=== PATIENT | female | born 1955 | race Caucasian/White ===

== ENCOUNTER 2016-06-04 14:00 | Inpatient (IN) | payer OTHER ==
[~2016-06-04] VITALS: Ht 160 cm; Wt 76.1 kg
[~2016-06-04 14:00] MED LIST: ATEN50TA PO; CIPR-9 PO; CYMB60CA PO; DETR4CAP PO; FURO40TA PO; HALO1TAB PO; LEVO125T4 PO; LURA80 PO; POTA10PO PO; REME30TA PO; ZOFR4TAB PO
[2016-06-04 14:05] VITALS: BP 160/72; PULSE 60; RESP 14; TEMP 98.6; O2SAT 96
[2016-06-04] MEDS ORDERED: SODIUM CHLOR 0.9% 1000 ML INJ 1,000 ML IV SCH (14:41)
[2016-06-04] MEDS ORDERED: SODIUM CHLORIDE 0.9% FLUSH 5 ML FLUSH IVF PRN (14:45)
--- NOTE | 2016-06-04 14:51 | PD ---
HPI Chief Complaint: Medical Clearance Time Seen by Provider: 14:31 Travel History International Travel<30 days: No Contact w/Intl Traveler<30days: No Traveled to known affect area: No History of Present Illness HPI The patient is a 60-year-old female who presents to the emergency department for medical evaluation of poor oral intake. According to the paperwork sent from the assisted living facility the patient is currently on hospice for a history of multiple sclerosis and schizophrenia. The patient apparently has had poor by mouth intake despite a specific diet for thickened liquids. The patient is nonverbal and is unable to communicate. She will follow simple commands but is unable to shake her head yes or no to questioning despite multiple attempts. Therefore, no further information is obtainable from the patient. The patient's son will be contacted in regards to definitive management. PFSH Past Medical History Arthritis: Yes Blood Disorders: Yes Bipolar Disorder: Yes Anxiety: Yes Depression: Yes Cancer: No Cardiovascular Problems: Yes Diabetes: No Diminished Hearing: No Endocrine: Yes Gastrointestinal Disorders: Yes (SEE MEDICAL RECORD) GERD: Yes Genitourinary: Yes Headaches: Yes Hypertension: Yes Immune Disorder: No Kidney Stones: Yes Musculoskeletal: Yes Neurologic: Yes (SEE MEDICAL RECORD) Psychiatric: Yes Reproductive: No Respiratory: No Integumentary: Yes (RED RASH, ABDOMINAL FOLDS, PERINEAL AREA, UNDER BREAST.) Immunizations Current: Yes Migraines: Yes Schizophrenia: Yes Thyroid Disease: Yes Menopausal: No : 2 Para: 1 : 1 Past Surgical History Abdominal Surgery: Yes Section: Yes (X1) Gynecologic Surgery: Yes Hysterectomy: Yes Oral Surgery: Yes Tonsillectomy: Yes Other Surgery: Yes (SEE MEDICAL RECORD) Social History Alcohol Use: No Tobacco Use: No Substance Use: No Allergies-Medications (Allergen,Severity, Reaction): Coded Allergies: Penicillin (Verified Allergy, Severe, 05/19/16) Rocephin (Verified Allergy, Severe, 05/19/16) Reported Meds & Prescriptions Reported Meds & Active Scripts Active Zofran (Ondansetron HCl) 4 Mg Tab 4 Mg PO Q6HR PRN Cipro (Ciprofloxacin HCl) 500 Mg Tab 500 Mg PO BID 10 Days Remeron (Mirtazapine) 30 Mg Tab 30 Mg PO HS Latuda (Lurasidone) 80 Mg Tab 80 Mg PO DAILY AT 5PM Haloperidol 1 Mg Tab 1 Mg PO BID Cymbalta DR (Duloxetine HCl) 60 Mg Capdr 60 Mg PO DAILY Reported Detrol LA (Tolterodine Tartrate) 4 Mg Cap 4 Mg PO DAILY Levothyroxine (Levothyroxine Sodium) 125 Mcg Tab 125 Mcg PO DAILY Potassium Chloride Powder (Potassium Chloride) 20 Meq Powderpack 20 Meq PO DAILY Furosemide 40 Mg Tab 40 Mg PO DAILY Atenolol 50 Mg Tab 50 Mg PO DAILY Review of Systems ROS Limitations: Clinical Condition, Other: (nonverbal) Gastrointestinal: Positive: Loss of Appetite (decreased oral intake according to the area left paperwork) Neurologic: Positive: Other (she of MS) Psychiatric: Positive: Disorder of Thought (history of schizophrenia) Physical Exam Narrative GENERAL: Awake, alert, 60-year-old female who is nonverbal but will make eye contact. SKIN: Warm and dry. HEAD: Atraumatic. Normocephalic. EYES: Pupils equal and round. 4 mm bilateral and reactive. ENT: No nasal bleeding or discharge. Slightly dry mucous membranes. NECK: Trachea midline. No JVD. CARDIOVASCULAR: Regular rate and rhythm. No murmur appreciated. Heart rate in the 70s. RESPIRATORY: No accessory muscle use. Clear to auscultation. Breath sounds equal bilaterally. GASTROINTESTINAL: Abdomen soft, non-tender, nondistended. No obvious rebound tenderness. MUSCULOSKELETAL: No obvious deformities. No clubbing. No cyanosis. No edema. Moves her upper extremities, would not move lower extremities and examination. NEUROLOGICAL: Awake and alert. Nonverbal, will make eye contact, will squeeze her hands to verbal commands, but will not move her lower extremities.. PSYCHIATRIC: Unable to assess. Data Data Last Documented VS Vital Signs Date Time Temp Pulse Resp B/P Pulse Ox O2 Delivery O2 Flow Rate FiO2 06/04/16 14:05 98.6 60 14 160/72 96 Orders Complete Blood Count With Diff (06/04/16 14:41) Comprehensive Metabolic Panel (06/04/16 14:41) Lipase (06/04/16 14:41) Lactic Acid (06/04/16 14:41) Urinalysis - C+S If Indicated (06/04/16 14:41) Iv Access Insert/Monitor (06/04/16 14:41) Ecg Monitoring (06/04/16 14:41) Oximetry (06/04/16 14:41) Sodium Chlor 0.9% 1000 Ml Inj (Ns 1000 M (06/04/16 14:41) Sodium Chloride 0.9% Flush (Ns Flush) (06/04/16 14:45) Urine Culture (06/04/16 15:38) Ciprofloxacin 400 Mg Premix (Cipro 400 M (06/04/16 16:30) Ct Abd/Pel W/O Iv Contrast (06/04/16 ) Admit Order (Ed Use Only) (06/04/16 17:25) Labs Laboratory Tests Test 06/04/16 06/04/16 15:33 15:38 White Blood Count 5.1 TH/MM3 Red Blood Count 4.22 MIL/MM3 Hemoglobin 13.8 GM/DL Hematocrit 39.3 % Mean Corpuscular Volume 93.1 FL Mean Corpuscular Hemoglobin 32.6 PG Mean Corpuscular Hemoglobin 35.0 % Concent Red Cell Distribution Width 12.7 % Platelet Count 162 TH/MM3 Mean Platelet Volume 8.6 FL Neutrophils (%) (Auto) 64.8 % Lymphocytes (%) (Auto) 25.4 % Monocytes (%) (Auto) 7.7 % Eosinophils (%) (Auto) 1.6 % Basophils (%) (Auto) 0.5 % Neutrophils # (Auto) 3.3 TH/MM3 Lymphocytes # (Auto) 1.3 TH/MM3 Monocytes # (Auto) 0.4 TH/MM3 Eosinophils # (Auto) 0.1 TH/MM3 Basophils # (Auto) 0.0 TH/MM3 CBC Comment DIFF FINAL Differential Comment Sodium Level 144 MEQ/L Potassium Level 4.6 MEQ/L Chloride Level 106 MEQ/L Carbon Dioxide Level 35.3 MEQ/L Anion Gap 3 MEQ/L Blood Urea Nitrogen 22 MG/DL Creatinine 1.05 MG/DL Estimat Glomerular Filtration 53 ML/MIN Rate Random Glucose 93 MG/DL Lactic Acid Level 0.9 mmol/L Calcium Level 9.9 MG/DL Total Bilirubin 0.7 MG/DL Aspartate Amino Transf 53 U/L (AST/SGOT) Alanine Aminotransferase 47 U/L (ALT/SGPT) Alkaline Phosphatase 74 U/L Total Protein 7.2 GM/DL Albumin 3.2 GM/DL Lipase 1401 U/L Urine Color YELLOW Urine Turbidity HAZY Urine pH 6.5 Urine Specific [place] 1.015 Urine Protein TRACE mg/dL Urine Glucose (UA) NEG mg/dL Urine Ketones NEG mg/dL Urine Occult Blood NEG Urine Nitrite NEG Urine Bilirubin NEG Urine Urobilinogen LESS THAN 2.0 MG/DL Urine Leukocyte Esterase MOD Urine WBC 14 /hpf Urine Bacteria OCC /hpf Urine Hyaline Casts 1 /lpf Microscopic Urinalysis Comment CULTURE INDICATED [facility] Medical Decision Making Medical Screen Exam Complete: Yes Emergency Medical Condition: Yes Medical Record Reviewed: Yes Interpretation(s) Laboratory Tests Test 06/04/16 06/04/16 15:33 15:38 White Blood Count 5.1 TH/MM3 Red Blood Count 4.22 MIL/MM3 Hemoglobin 13.8 GM/DL Hematocrit 39.3 % Mean Corpuscular Volume 93.1 FL Mean Corpuscular Hemoglobin 32.6 PG Mean Corpuscular Hemoglobin 35.0 % Concent Red Cell Distribution Width 12.7 % Platelet Count 162 TH/MM3 Mean Platelet Volume 8.6 FL Neutrophils (%) (Auto) 64.8 % Lymphocytes (%) (Auto) 25.4 % Monocytes (%) (Auto) 7.7 % Eosinophils (%) (Auto) 1.6 % Basophils (%) (Auto) 0.5 % Neutrophils # (Auto) 3.3 TH/MM3 Lymphocytes # (Auto) 1.3 TH/MM3 Monocytes # (Auto) 0.4 TH/MM3 Eosinophils # (Auto) 0.1 TH/MM3 Basophils # (Auto) 0.0 TH/MM3 CBC Comment DIFF FINAL Differential Comment Lactic Acid Level 0.9 mmol/L Total Bilirubin 0.7 MG/DL Alkaline Phosphatase 74 U/L Total Protein 7.2 GM/DL Urine Color YELLOW Urine Turbidity HAZY Urine pH 6.5 Urine Specific [place] 1.015 Urine Protein TRACE mg/dL Urine Glucose (UA) NEG mg/dL Urine Ketones NEG mg/dL Urine Occult Blood NEG Urine Nitrite NEG Urine Bilirubin NEG Urine Urobilinogen LESS THAN 2.0 MG/DL Urine Leukocyte Esterase MOD Urine WBC 14 /hpf Urine Bacteria OCC /hpf Urine Hyaline Casts 1 /lpf Microscopic Urinalysis Comment CULTURE INDICATED Last Impressions Abdomen/Pelvis CT 06/04/16 0000 Signed Impressions: Service Date/Time: Saturday, June 04, 2016 18:14 - CONCLUSION: 1. No acute findings within the abdomen and pelvis. Specifically no CT findings for acute pancreatitis. 2. Multiple calcified gallstones and bilateral nonobstructing renal calculi. 3. Mild constipation. 4. No significant change from April. Dago Farfan MD Differential Diagnosis Differential diagnosis includes end-of-life care, multiple sclerosis, schizoaffective disorder, dehydration, hypoalbuminemia, renal insufficiency, inability to care for self. Narrative Course I had a discussion with the hospitalist fisher gill net, who states that the patient' s physician, Dr. Gauthier and a hospice staff had a discussion with the patient's son, who is the only child. The patient's son does not have power of state attorney, however, as the only person they have to make a legal decision. The patient apparently had multiple episodes of increased work of breathing and was near last night, quarter hospice staff, when the son decided to change his mind and wanted everything done for the patient. They note poor oral intake and the son requested the patient be sent to the emergency department for gastrostomy tube placement and continuing medical care. Hospice states the patient was a DNR, however, is unsure if the son will keep the patient has a DNR. The patient is nonverbal and unable to communicate her current wishes. Therefore, IV was established labs are drawn and sent, and chest x-ray was obtained. The patient was administered IV fluids. Patient's UA revealed 14 WBCs, therefore, was administered Cipro as she is allergic to Rocephin. The on- call medical physician/hospitalist were paged for admission. The patient's lipase is elevated, therefore, CT the abdomen and pelvis was ordered to evaluate for choledocholithiasis and or pancreatitis. The patient will be admitted to medical physician. CT the abdomen and pelvis was unremarkable. Patient is medically clear for floor. Physician Communication Physician Communication I discussed the patient with Dr. Raymond who agrees with admission. Diagnosis Primary Impression: Multiple sclerosis Additional Impressions: Dehydration, mild Pancreatitis Qualified Code: K85.90 - Acute pancreatitis, unspecified complication status, unspecified pancreatitis type Admitting Information Admitting Physician Requests: Admit Condition: Stable Bhavesh Ortiz MD Jun 04, 2016 14:51
[2016-06-04 15:57] LABS: AUTOMATED NEUTROPHIL # 3.3 TH/MM3 (1.8-7.7); BASOPHIL % 0.5 % (0.0-2.0); EOSINOPHIL # 0.1 TH/MM3 (0-0.4); EOSINOPHIL % 1.6 % (0.0-4.0); HEMATOCRIT 39.3 % (35.0-46.0); HEMO FLAGS DIFF FINAL; LYMPH % 25.4 % (9.0-44.0); LYMPHOCYTE # 1.3 TH/MM3 (1.0-4.8); MEAN CELL VOLUME 93.1 FL (80.0-100.0); MEAN CORPUSCULAR HEMOGLOBIN 32.6 PG (27.0-34.0); MONO % 7.7 % (0.0-8.0); NEUT % 64.8 % (16.0-70.0); PLATELET COUNT 162 TH/MM3 (150-450); RED BLOOD COUNT 4.22 MIL/MM3 (4.00-5.30); RED CELL DISTRIBUTION WIDTH 12.7 % (11.6-17.2); WHITE BLOOD COUNT 5.1 TH/MM3 (4.0-11.0)
[2016-06-04 16:10] LABS: BACTERIA, URINE OCC /hpf; BLOOD, URINE NEG (NEG); COMMENT (UR) CULTURE INDICATED; CULTURE IF INDICATED CULTURE INDICATED; GLUCOSE,URINE NEG (NEG); HYALINE CAST, URINE 1 /lpf (RARE); KETONE, URINE NEG (NEG); NITRITE,URINE NEG (NEG); PH, URINE 6.5 (5.0-8.5); URINE COLOR YELLOW (YELLW/STRAW)
[2016-06-04 16:21] LABS: ALKALINE PHOSPHATASE 74 U/L (45-117); TOTAL BILIRUBIN ADULT 0.7 MG/DL (0.2-1.0)
[2016-06-04] MEDS ORDERED: CIPROFLOXACIN 400 MG PREMIX 200 ML IV ONE (16:30)
[2016-06-04 16:44] LABS: ALT (GPT) 47 U/L (10-53); ANION GAP 3 MEQ/L (5-15); AST (GOT) 53 U/L (15-37); BICARBONATE 35.3 MEQ/L (21.0-32.0); BLOOD UREA NITROGEN 22 MG/DL (7-18); CHLORIDE 106 MEQ/L (98-107); GLOMERULAR FILTRATION RATE 53 ML/MIN (>89); SODIUM (NA) 144 MEQ/L (136-145)
[2016-06-04 17:06] LABS: POTASSIUM 4.6 MEQ/L (3.5-5.1)
--- NOTE | 2016-06-04 18:34 | RADRPT ---
EXAM DATE/TIME: 06/04/2016 18:14 [facility] COMPARISON: CT ABDOMEN & PELVIS W CONTRAST, May 19, 2016, 19:35. INDICATIONS : Diffuse abdominal pain; evaluate for pancreatitis. ORAL CONTRAST: No oral contrast ingested. RADIATION DOSE: 5.23 CTDIvol (mGy) MEDICAL HISTORY : Hypertension. Gastroesophageal reflux disease. Renal calculi. SURGICAL HISTORY : Hysterectomy. section. ENCOUNTER: Initial ACUITY: 1 day PAIN SCALE: Non-responsive LOCATION: Abdomen/pelvis TECHNIQUE: Volumetric scanning of the abdomen and pelvis was performed. Using automated exposure control and ad justment of the mA and/or kV according to patient size, radiation dose was kept as low as reasonably achievable to obtain optimal diagnostic quality images. FINDINGS: Lung bases are clear. No significant abnormality in the liver, spleen, adrenals or pancreas. Multiple calcified gallstones in the gallbladder. Multiple bilateral renal calculi ranging in size from 1-5 m m in the upper and lower poles. No ureteral or bladder calculi identified. Vascular calcifications no arthur in the pelvis. No acute bony and amount is. No bowel obstruction, free air or free fluid. Mild constipation. CONCLUSION: 1. No acute findings within the abdomen and pelvis. Specifically no CT findings for acute pancreatiti s. 2. Multiple calcified gallstones and bilateral nonobstructing renal calculi. 3. Mild constipation. 4. No significant change from May 19, 2016. Dago Farfan MD on June 04, 2016 at 18:22 Board Certified Radiologist. This report was verified electronically.
--- NOTE | 2016-06-04 18:54 | HHI.HP ---
[facility] Unknown Admission Diagnosis pancreatitis, MS, dehydration Diagnoses: (1) Pancreatitis Diagnosis: Principal (2) UTI (urinary tract infection) Diagnosis: Principal (3) Schizophrenia Diagnosis: Principal (4) Failure to thrive in adult Diagnosis: Principal (5) DNR (do not resuscitate) Diagnosis: Principal Travel History International Travel<30 Days: No Contact w/Intl Traveler <30 Da: No Traveled to Known Affected Are: No History of Present Illness This is a 60-year-old DNR female with a PMH of Anxiety, Depression, Schizophrenia, HTN and MS who was sent to the ER from [facility] secondary to decreased PO intake. Pt unable to give history as she is nonverbal at baseline. Per report, pt currently under Hospice, however Son wanting full treatment. On arrival, BP 160/72, HR 60, O2 sat 96% on RA, Afebrile. CBC normal. Creatinine 1.05, previously 1.33 on 05/19/16. UA positive for UTI. Lipase 1401. CT Abd/Pelvis w/ no acute findings. S/p Cipro in ER for UTI. Review of Systems Other ROS: Unable to obtain secondary to nonverbal state. Past Family Social History Past Medical History PMH: Anxiety, Depression, Schizophrenia, HTN and MS Past Surgical History PAST SURGICAL HISTORY: , Hysterectomy, Tonsillectomy Allergies: Coded Allergies: Penicillin (Verified Allergy, Severe, 05/19/16) Rocephin (Verified Allergy, Severe, 05/19/16) Family History PAST FAMILY HISTORY: Reviewed. No h/o DM or CAD Social History PAST SOCIAL HISTORY: Negative for alcohol, tobacco or drugs. Physical Exam Vital Signs Vital Signs Date Time Temp Pulse Resp B/P Pulse Ox O2 Delivery O2 Flow Rate FiO2 06/04/16 14:05 98.6 60 14 160/72 96 Physical Exam PE: GENERAL: Thin, frail middle-aged white female in no acute distress, appears older than stated age. HEENT: PERRLA, EOMI. No scleral icterus or conjunctival pallor. No lid lag or facial droop. CARDIOVASCULAR: Regular rate and rhythm. No obvious murmurs to auscultation. No chest tenderness to palpation. RESPIRATORY: No obvious rhonchi or wheezing. Clear to auscultation. Breath sounds equal bilaterally. GASTROINTESTINAL: Abdomen soft, non-tender, nondistended. BS normal. MUSCULOSKELETAL: Extremities without clubbing, cyanosis, or edema. No obvious deformities. NEUROLOGICAL: Sleeping, opens eyes to name, follows few simple commands. No focal neurologic deficits. Moving both upper and lower extremities spontaneously. Laboratory Laboratory Tests Test 06/04/16 06/04/16 15:33 15:38 White Blood Count 5.1 Red Blood Count 4.22 Hemoglobin 13.8 Hematocrit 39.3 Mean Corpuscular Volume 93.1 Mean Corpuscular Hemoglobin 32.6 Mean Corpuscular Hemoglobin 35.0 Concent Red Cell Distribution Width 12.7 Platelet Count 162 Mean Platelet Volume 8.6 Neutrophils (%) (Auto) 64.8 Lymphocytes (%) (Auto) 25.4 Monocytes (%) (Auto) 7.7 Eosinophils (%) (Auto) 1.6 Basophils (%) (Auto) 0.5 Neutrophils # (Auto) 3.3 Lymphocytes # (Auto) 1.3 Monocytes # (Auto) 0.4 Eosinophils # (Auto) 0.1 Basophils # (Auto) 0.0 CBC Comment DIFF FINAL Differential Comment Sodium Level 144 Potassium Level 4.6 Chloride Level 106 Carbon Dioxide Level 35.3 Anion Gap 3 Blood Urea Nitrogen 22 Creatinine 1.05 Estimat Glomerular Filtration 53 Rate Random Glucose 93 Lactic Acid Level 0.9 Calcium Level 9.9 Total Bilirubin 0.7 Aspartate Amino Transf 53 (AST/SGOT) Alanine Aminotransferase 47 (ALT/SGPT) Alkaline Phosphatase 74 Total Protein 7.2 Albumin 3.2 Lipase 1401 Urine Color YELLOW Urine Turbidity HAZY Urine pH 6.5 Urine Specific [place] 1.015 Urine Protein TRACE Urine Glucose (UA) NEG Urine Ketones NEG Urine Occult Blood NEG Urine Nitrite NEG Urine Bilirubin NEG Urine Urobilinogen LESS THAN 2.0 Urine Leukocyte Esterase MOD Urine WBC 14 Urine Bacteria OCC Urine Hyaline Casts 1 Microscopic Urinalysis Comment CULTURE INDICATED Date/Time Procedure Status Source Growth 06/04/16 15:38 Urine Culture Received Urine Clean Catch Pending Result Diagram: 06/04/16 1533 06/04/16 1533 Assessment and Plan Problem List: (1) Pancreatitis ICD Code: K85.90 Status: Acute (2) UTI (urinary tract infection) ICD Code: N39.0 Status: Acute (3) Failure to thrive in adult ICD Code: R62.7 Status: Acute (4) Schizophrenia ICD Code: F20.9 Status: Acute (5) DNR (do not resuscitate) ICD Code: Z66 Status: Acute Assessment and Plan A/P: 1. Pancreatitis: Lipase 1401. CT Abd/Pelvis w/ no acute findings, images reviewed by me. Decreased PO intake for 2-3 days per [facility] report. IVF, Protonix , repeat labs in am. 2. UTI: U/a w/ UTI. Afebrile, no leukocytosis. In light of decreased PO intake will continue w/ IV Cipro, IVF for hydration. 3. FTT: Sent to ER from [facility] for decreased PO intake, likely secondary to acute pancreatitis and UTI. IVF for hydration. 4. DNR: Code Status reviewed, pt DNR. On Hospice, however Son wants full treatment at this time. Will need to discuss w/ Son whether plan is to resume Hospice at time of d/c 5. Schizophrenia: Stable. Pt nonverbal at baseline. +agitation while in ER. Ativan prn, resume home medications. 6. DVT Prophylaxis: SCD/Teds. 7. Social work for d/c planning as needed. 8. Case discussed w/ ER physician at length Physician Certification 2 Midnight Certification Type: Admission for Inpatient Services Order for Inpatient Services The services are ordered in accordance with Medicare regulations or non- Medicare payer requirements, as applicable. In the case of services not specified as inpatient-only, they are appropriately provided as inpatient services in accordance with the 2-midnight benchmark. Estimated LOS (days): 2 days is the estimated time the patient will need to remain in the hospital, assuming treatment plan goals are met and no additional complications. Post-Hospital Plan: Not yet determined Problem Qualifiers (1) Pancreatitis: Qualified Code: K85.90 - Acute pancreatitis, unspecified complication status, unspecified pancreatitis type Nuzhat Sofia MD Jun 04, 2016 18:54
[2016-06-04] MEDS ORDERED: ONDANSETRON HCL 4 MG/2 ML VIAL IVP PRN (19:00)
[2016-06-04] MEDS ORDERED: SODIUM CHLORIDE 0.9% FLUSH 5 ML FLUSH FLUSH PRN (19:00)
[2016-06-04] MEDS ORDERED: BISACODYL 10 MG SUPP PR PRN (19:00)
[2016-06-04 19:30] VITALS: BP 139/80; PULSE 56; RESP 16; O2SAT 97
[2016-06-04] MEDS: MORPHINE SULFATE 4 MG/ML INJ IV PRN ×2 (19:32→22:21)
[2016-06-04] MEDS: SODIUM CHLORIDE 0.9% FLUSH 5 ML FLUSH FLUSH SCH (19:46)
[2016-06-04] MEDS: SODIUM CHLOR 0.9% 1000 ML INJ 1,000 ML IV SCH (19:46)
[2016-06-04] MEDS: MIRTAZAPINE 15 MG TAB PO SCH (19:48)
[2016-06-04] MEDS ORDERED: MORPHINE SULFATE 4 MG/ML INJ IV PRN ×2 (20:00→23:00)
[2016-06-04] MEDS ORDERED: ACETAMINOPHEN 325 MG TAB PO PRN (20:00)
[2016-06-04] MEDS: PANTOPRAZOLE SODIUM 40 MG VIAL IV PUSH SCH (21:00)
[2016-06-04 22:10] VITALS: BP 167/110; PULSE 77; RESP 18; TEMP 95.3; O2SAT 98
[2016-06-04 23:23] VITALS: BP 188/124; PULSE 69; RESP 18; TEMP 95.9; O2SAT 97
[2016-06-04] MEDS: LORazepam 2 MG/ML VIAL IV PUSH PRN (23:46)
[2016-06-05] VITALS: BP 133/94; PULSE 75; RESP 16; TEMP 96.2; O2SAT 94
[2016-06-05 04:00] VITALS: BP 111/78; PULSE 55; RESP 14; TEMP 95.4; O2SAT 98
[2016-06-05] MEDS: CIPROFLOXACIN 400 MG PREMIX 200 ML IV SCH ×2 (05:00→17:15)
[2016-06-05] MEDS: SODIUM CHLOR 0.9% 1000 ML INJ 1,000 ML IV SCH (06:00)
[2016-06-05 07:08] LABS: AUTOMATED NEUTROPHIL # 2.9 TH/MM3 (1.8-7.7); BASOPHIL % 0.2 % (0.0-2.0); EOSINOPHIL # 0.1 TH/MM3 (0-0.4); EOSINOPHIL % 2.8 % (0.0-4.0); HEMATOCRIT 34.8 % (35.0-46.0); HEMO FLAGS DIFF FINAL; LYMPH % 28.5 % (9.0-44.0); LYMPHOCYTE # 1.4 TH/MM3 (1.0-4.8); MEAN CELL VOLUME 93.6 FL (80.0-100.0); MEAN CORPUSCULAR HEMOGLOBIN 31.6 PG (27.0-34.0); MEAN CORPUSCULAR HGB CONC 33.8 % (32.0-36.0); MONO % 8.9 % (0.0-8.0); NEUT % 59.6 % (16.0-70.0); PLATELET COUNT 145 TH/MM3 (150-450); RED BLOOD COUNT 3.72 MIL/MM3 (4.00-5.30); RED CELL DISTRIBUTION WIDTH 12.9 % (11.6-17.2); WHITE BLOOD COUNT 4.9 TH/MM3 (4.0-11.0)
[2016-06-05 07:14] LABS: ALKALINE PHOSPHATASE 67 U/L (45-117); ALT (GPT) 38 U/L (10-53); ANION GAP 6 MEQ/L (5-15); AST (GOT) 38 U/L (15-37); BICARBONATE 32.5 MEQ/L (21.0-32.0); BLOOD UREA NITROGEN 18 MG/DL (7-18); CHLORIDE 108 MEQ/L (98-107); GLOMERULAR FILTRATION RATE 64 ML/MIN (>89); POTASSIUM 3.5 MEQ/L (3.5-5.1); SODIUM (NA) 146 MEQ/L (136-145); TOTAL BILIRUBIN ADULT 0.7 MG/DL (0.2-1.0)
[2016-06-05 08:00] VITALS: BP 132/93; PULSE 58; RESP 16; TEMP 96.1; O2SAT 99
[2016-06-05] MEDS: SODIUM CHLORIDE 0.9% FLUSH 5 ML FLUSH FLUSH SCH ×2 (08:55→20:31)
[2016-06-05] MEDS: DULoxetine HCl DR 60 MG CAP PO SCH (08:55)
[2016-06-05] MEDS: PANTOPRAZOLE SODIUM 40 MG VIAL IV PUSH SCH ×2 (09:43→20:31)
--- NOTE | 2016-06-05 10:46 | HHI.PR ---
Subjective Remarks Patient seen in follow-up for acute pancreatitis, failure to thrive was on hospice. Patient is nonverbal and noninteractive. Had a long discussion with her son. At baseline she is nonverbal but can follow commands and was able to eat with assistance. Objective Vitals Vital Signs Date Time Temp Pulse Resp B/P Pulse Ox O2 Delivery O2 Flow Rate FiO2 06/05/16 04:00 95.4 55 14 111/78 98 06/05/16 00:00 96.2 75 16 133/94 94 06/04/16 23:23 95.9 69 18 188/124 97 06/04/16 22:10 95.3 77 18 167/110 98 06/04/16 19:30 56 16 139/80 97 Room Air 06/04/16 14:05 98.6 60 14 160/72 96 I/O 06/04/16 06/04/16 06/04/16 06/05/16 06/05/16 06/05/16 07:00 15:00 23:00 07:00 15:00 23:00 Intake Total 0 ml 0 ml Balance 0 ml 0 ml Intake Oral 0 ml 0 ml # Voids 0 1 # Bowel Movements 0 0 Result Diagram: 06/05/16 0522 06/05/16 0522 Imaging Last Impressions Abdomen/Pelvis CT 06/04/16 0000 Signed Impressions: Service Date/Time: Saturday, June 04, 2016 18:14 - CONCLUSION: 1. No acute findings within the abdomen and pelvis. Specifically no CT findings for acute pancreatitis. 2. Multiple calcified gallstones and bilateral nonobstructing renal calculi. 3. Mild constipation. 4. No significant change from April. Dago Farfan MD Objective Remarks GENERAL: Frail and elderly female in no acute distress SKIN: Multiple skin bruises secondary to multiple falls per her son. CARDIOVASCULAR: Normal rate and regular rhythm without murmurs, gallops, or rubs. RESPIRATORY: Breath sounds equal and clear to auscultation bilaterally. GASTROINTESTINAL: Abdomen soft, non-distended. Normal active bowel sounds MUSCULOSKELETAL: Extremities without cyanosis, or edema. NEURO: Nonverbal and noninteractive. Does not follow commands. Withdraw to pain. PSYCH: Calm A/P Problem List: (1) Pancreatitis ICD Code: K85.90 Status: Acute (2) UTI (urinary tract infection) ICD Code: N39.0 Status: Acute (3) Failure to thrive in adult ICD Code: R62.7 Status: Acute (4) Schizophrenia ICD Code: F20.9 Status: Acute Assessment and Plan 60-year-old female who apparently has been living at an [facility] and was on hospice admitted with pancreatitis and possible UTI. The patient has had a declining course with previous psychiatric issues, there is reported MS as one of her diagnosis. Brain imaging revealed brain atrophy and extensive small vessel ischemic changes. At baseline she does not talk. Per her son she has been able to follow command and eat. She would try to get up at times but has been having recurrent falls which leads to multiple bruises. I had an extensive discussion with the patient's son regarding goals of care over 40 minutes. At this point he wants us to continue with aggressive care. Keep her full code for now. His main goal is to have her back to her previous level of functioning worse she can follow commands and able to eat. We discussed feeding tube if her condition does not improve. He will think about it. Pancreatitis: Lipase 1401. Overnight trended down to normal 155 with IV fluid hydration. The patient does not appear to be in any pain. There has been no report of vomiting. Abdominal CT reviewed by me. No acute findings or signs of pancreatitis. - We'll continue IV hydration for now. Supportive care. UTI: Urinalysis suggestive of UTI. Continue Cipro. Follow urine cultures. Failure to thrive: See above discussion with the son. Speech therapy to evaluate. Will continue with IV hydration today and discussed feeding tube tomorrow as she appeared to have been declining and not wanting to eat. May need palliative care to assist. Schizophrenia: Stable. Continue home medications. DVT Prophylaxis: SCD/Teds. Problem Qualifiers (1) Pancreatitis: Qualified Code: K85.90 - Acute pancreatitis, unspecified complication status, unspecified pancreatitis type Mckenzie Gustafson MD Jun 05, 2016 10:45
[2016-06-05 12:00] VITALS: BP 179/111; PULSE 56; RESP 16; TEMP 95.7; O2SAT 100
[2016-06-05] MEDS: ENALAPRILAT 1.25 MG/ML VIAL IV PRN ×2 (12:51→20:30)
[2016-06-05] MEDS: D5-1/2 NS + KCL 20 MEQ INJ 1,000 ML IV SCH ×2 (12:52→20:32)
[2016-06-05] MEDS ORDERED: ENALAPRILAT 1.25 MG/ML VIAL IV PUSH ONE (15:45)
[2016-06-05 16:00] VITALS: BP 175/108; PULSE 71; RESP 17; TEMP 95.8; O2SAT 97
[2016-06-05] MEDS ORDERED: cloNIDine HCL 0.1 MG/24 HR PATCH TD SCH (16:00)
[2016-06-05 20:00] VITALS: BP 190/90; PULSE 83; RESP 20; TEMP 96.4; O2SAT 95
[2016-06-05] MEDS: MIRTAZAPINE 15 MG TAB PO SCH (20:31)
[2016-06-06] VITALS (20 sets, daily range): BP systolic 97–200; BP diastolic 75–130; PULSE 81–114; RESP 19–21; TEMP 96.4–98.1; O2SAT 96–99
[2016-06-06] MEDS: LORazepam 2 MG/ML VIAL IV PUSH PRN ×3 (00:57→23:22)
[2016-06-06] MEDS ORDERED: hydrALAZINE HCL 20 MG/ML VIAL IV PUSH ONE (04:15)
[2016-06-06] MEDS ORDERED: hydrALAZINE HCL 20 MG/ML VIAL ONE (04:15)
[2016-06-06] MEDS: CIPROFLOXACIN 400 MG PREMIX 200 ML IV SCH ×2 (04:47→16:59)
[2016-06-06] MEDS: D5-1/2 NS + KCL 20 MEQ INJ 1,000 ML IV SCH ×3 (04:48→21:04)
[2016-06-06 06:54] LABS: HEMATOCRIT 37.4 % (35.0-46.0); MEAN CELL VOLUME 91.7 FL (80.0-100.0); MEAN CORPUSCULAR HEMOGLOBIN 31.9 PG (27.0-34.0); MEAN CORPUSCULAR HGB CONC 34.8 % (32.0-36.0); PLATELET COUNT 156 TH/MM3 (150-450); RED BLOOD COUNT 4.08 MIL/MM3 (4.00-5.30); RED CELL DISTRIBUTION WIDTH 12.8 % (11.6-17.2); REVIEW FLAG FINAL; WHITE BLOOD COUNT 7.1 TH/MM3 (4.0-11.0)
[2016-06-06] MEDS ORDERED: METOPROLOL TARTRATE 5 MG/5 ML VIAL IV PUSH ONE (07:00)
[2016-06-06 07:19] LABS: BICARBONATE 25.3 MEQ/L (21.0-32.0); POTASSIUM 3.4 MEQ/L (3.5-5.1)
[2016-06-06] MEDS: ATENOLOL 50 MG TAB PO SCH (09:00)
[2016-06-06] MEDS: DULoxetine HCl DR 60 MG CAP PO SCH (09:00)
[2016-06-06] MEDS: SODIUM CHLORIDE 0.9% FLUSH 5 ML FLUSH FLUSH SCH ×2 (09:00→20:58)
[2016-06-06] MEDS: PANTOPRAZOLE SODIUM 40 MG VIAL IV PUSH SCH ×2 (09:09→20:57)
--- NOTE | 2016-06-06 10:50 | HHI.PR ---
Subjective Remarks Patient is more interactive today. She is nonverbal but was able to follow some commands, squeeze my hand and move her feet. Blood pressure uncontrolled overnight, however Was called for IV antihypertensives. Her blood pressure is still uncontrolled this morning as she is unable to take oral medications. Discuss with the patient's son and [id number] at bedside. Objective Vitals Vital Signs Date Time Temp Pulse Resp B/P Pulse Ox O2 Delivery O2 Flow Rate FiO2 06/06/16 08:04 83 182/119 06/06/16 07:45 102 163/115 06/06/16 06:51 114 167/110 06/06/16 06:50 112 185/130 06/06/16 05:35 170/122 06/06/16 04:00 96.6 90 21 200/95 96 06/06/16 00:00 96.5 85 21 185/85 96 06/05/16 20:00 96.4 83 20 190/90 95 06/05/16 16:00 95.8 71 17 175/108 97 06/05/16 12:00 95.7 56 16 179/111 100 I/O 06/05/16 06/05/16 06/05/16 06/06/16 06/06/16 06/06/16 07:00 15:00 23:00 07:00 15:00 23:00 Intake Total 0 ml 2025 ml 976 ml Balance 0 ml 2025 ml 976 ml Intake Oral 0 ml 0 ml 0 ml IV Total 2025 ml 976 ml # Voids 1 4 2 2 # Bowel Movements 0 0 0 0 Result Diagram: 06/06/16 0606/06/16 0607 Objective Remarks GENERAL: Frail and elderly female in no acute distress SKIN: Multiple skin bruises secondary to multiple falls per her son. CARDIOVASCULAR: Normal rate and regular rhythm without murmurs, gallops, or rubs. RESPIRATORY: Breath sounds equal and clear to auscultation bilaterally. GASTROINTESTINAL: Abdomen soft, non-distended. Normal active bowel sounds MUSCULOSKELETAL: Extremities without cyanosis, or edema. NEURO: Nonverbal. Follows some commands. PSYCH: Calm A/P Problem List: (1) Pancreatitis ICD Code: K85.90 Status: Acute (2) UTI (urinary tract infection) ICD Code: N39.0 Status: Acute (3) Failure to thrive in adult ICD Code: R62.7 Status: Acute (4) Schizophrenia ICD Code: F20.9 Status: Acute Assessment and Plan 60-year-old female who apparently has been living at an [facility] and was on hospice admitted with pancreatitis and possible UTI. The patient has had a declining course with previous psychiatric issues, there is reported MS as one of her diagnosis. Brain imaging revealed brain atrophy and extensive small vessel ischemic changes. At baseline she does not talk. Per her son she has been able to follow command and eat. She would try to get up at times but has been having recurrent falls which leads to multiple bruises. I had an extensive discussion with the patient's son regarding goals of care. He would like to see if she is now able to eat with repeat speech therapy evaluation. If she is unable to eat, he will consider hospice again as he is reluctant to do a feeding tube. Pancreatitis: Lipase 1401. Overnight trended down to normal 155 with IV fluid hydration. The patient does not appear to be in any pain. There has been no report of vomiting. Abdominal CT reviewed by me. No acute findings or signs of pancreatitis. - We'll continue gentle IV hydration for now. Supportive care. Uncontrolled hypertension: The patient is unable to take oral medication currently. We'll transfer to an intermediate care unit where she can get IV hydralazine or IV labetalol if needed. Previously did not respond to IV Vasotec. Continue clonidine patch. Resume atenolol if able to take oral medication. Would add Lisinopril as well if she is able to take PO. UTI: Urinalysis suggestive of UTI. Continue Cipro. Follow urine cultures. Failure to thrive: See above discussion with the son. Speech therapy to re- evaluate. If patient still cannot swallow, her son reports that he would then consider hospice. Schizophrenia: Stable. Continue home medications. DVT Prophylaxis: SCD/Teds. Problem Qualifiers (1) Pancreatitis: Qualified Code: K85.90 - Acute pancreatitis, unspecified complication status, unspecified pancreatitis type Mckenzie Gustafson MD Jun 06, 2016 10:50
[2016-06-06] MEDS ORDERED: LABETALOL HCL 100 MG/20 ML VIAL IV PRN (11:00)
[2016-06-06] MEDS ORDERED: hydrALAZINE HCL 20 MG/ML VIAL IV PRN (11:00)
[2016-06-06] MEDS ORDERED: POTASSIUM CHLOR 20 MEQ PREMIX 100 ML IV ONE (11:00)
[2016-06-06] MEDS ORDERED: VANCOMYCIN INJ 1,000 MG in SODIUM CHLOR 0.9% 250 ML INJ 250 ML IV SCH (20:30)
[2016-06-06] MEDS ORDERED: Vancomycin Consult Pharmacy 1 EA OTHER SCH (20:30)
[2016-06-06] MEDS: MIRTAZAPINE 15 MG TAB PO SCH (20:58)
[2016-06-06] MEDS ORDERED: VANCOMYCIN INJ 1,400 MG in SODIUM CHLORID 0.9% 500 ML INJ 500 ML IV SCH (23:00)
[2016-06-07] VITALS (15 sets, daily range): BP systolic 114–128; BP diastolic 90–94; PULSE 63–82; RESP 16–18; TEMP 98–98.1; O2SAT 97–100
[2016-06-07 06:49] LABS: BICARBONATE 27.4 MEQ/L (21.0-32.0); POTASSIUM 3.9 MEQ/L (3.5-5.1)
[2016-06-07] MEDS: DULoxetine HCl DR 60 MG CAP PO SCH (09:00)
[2016-06-07] MEDS: ATENOLOL 50 MG TAB PO SCH (09:00)
[2016-06-07] MEDS: SODIUM CHLORIDE 0.9% FLUSH 5 ML FLUSH FLUSH SCH (09:22)
[2016-06-07] MEDS: PANTOPRAZOLE SODIUM 40 MG VIAL IV PUSH SCH (09:22)
--- NOTE | 2016-06-07 10:55 | HHI.PR ---
Subjective Remarks The patient failed a swallow evaluation again. This morning she is again not interactive. Does not respond or follow commands. Objective Vitals Vital Signs Date Time Temp Pulse Resp B/P Pulse Ox O2 Delivery O2 Flow Rate FiO2 06/07/16 06:00 73 06/07/16 05:00 71 06/07/16 04:00 Room Air 06/07/16 04:00 74 06/07/16 04:00 98.1 74 18 128/93 97 06/07/16 03:00 70 06/07/16 02:00 65 06/07/16 01:00 69 06/07/16 00:00 82 06/06/16 23:24 Room Air 06/06/16 23:24 98.0 85 20 97/75 99 06/06/16 23:00 86 06/06/16 22:00 81 06/06/16 21:00 89 06/06/16 20:00 Room Air 06/06/16 20:00 96.4 84 20 113/90 96 06/06/16 20:00 84 06/06/16 18:43 89 06/06/16 18:32 97.6 89 20 144/114 96 06/06/16 16:00 98.1 96 20 177/124 96 06/06/16 14:20 88 149/108 06/06/16 13:40 91 165/122 06/06/16 12:55 91 174/125 06/06/16 12:00 96.5 87 19 179/120 98 I/O 06/06/16 06/06/16 06/06/16 06/07/16 06/07/16 06/07/16 07:00 15:00 23:00 07:00 15:00 23:00 Intake Total 976 ml 1350 ml Balance 976 ml 1350 ml Intake Oral 0 ml 0 ml IV Total 976 ml 1350 ml # Voids 2 6 5 # Bowel Movements 0 0 0 Result Diagram: 06/06/1660606/07/16606 Objective Remarks GENERAL: Frail and elderly female noninteractive SKIN: Multiple skin bruises secondary to multiple falls per her son. CARDIOVASCULAR: Normal rate and regular rhythm without murmurs, gallops, or rubs. RESPIRATORY: Breath sounds equal and clear to auscultation bilaterally. GASTROINTESTINAL: Abdomen soft, non-distended. Normal active bowel sounds MUSCULOSKELETAL: Extremities without cyanosis, or edema. NEURO: Nonverbal. Noninteractive PSYCH: Calm A/P Problem List: (1) Pancreatitis ICD Code: K85.90 Status: Acute (2) UTI (urinary tract infection) ICD Code: N39.0 Status: Acute (3) Failure to thrive in adult ICD Code: R62.7 Status: Acute (4) Schizophrenia ICD Code: F20.9 Status: Acute Assessment and Plan 60-year-old female who apparently has been living at an [facility] and was on hospice admitted with pancreatitis and possible UTI. The patient has had a declining neurological course with previous psychiatric issues, there is reported MS as one of her diagnosis. Brain imaging revealed brain atrophy and extensive small vessel ischemic changes, previous stroke. At baseline she does not talk. Per her son she has been able to follow command and eat. She would try to get up at times but has been having recurrent falls which leads to multiple bruises. Apparently the patient has been having a declining course at the [facility] and was on hospice. Patient was sent into the hospital when she started to decline further. Unfortunately the patient does not appear to make significant improvements. She is not interacting and not eating. Family decided to put her back on hospice. They would prefer the care center. Hospice has been consulted. Pancreatitis: Lipase 1401. Overnight trended down to normal 155 with IV fluid hydration. There has been no report of vomiting. Abdominal CT reviewed by me. No acute findings or signs of pancreatitis. - We'll continue gentle IV hydration for now. Supportive care. Uncontrolled hypertension: The patient is unable to take oral medication currently. She is in the [facility] for IV antihypertensives as needed. Continue clonidine patch. Resume atenolol if able to take oral medication. Would add Lisinopril as well if she is able to take PO. UTI: Urinalysis suggestive of UTI. Urine grew group D enterococcus. Sensitive to vancomycin and Macrobid. Patient was switched to vancomycin. Failure to thrive: See above discussion with the son. Patient is unable to swallow or eat. Not interactive. Family decided to put her back on hospice and comfort care. They would prefer the care center. Schizophrenia: Stable. Continue home medications. DVT Prophylaxis: SCD/Teds. Problem Qualifiers (1) Pancreatitis: Qualified Code: K85.90 - Acute pancreatitis, unspecified complication status, unspecified pancreatitis type Mckenzie Gustafson MD Jun 07, 2016 10:55
--- NOTE | 2016-06-07 13:07 | HHI.DS ---
Discharge Summary Admission Date Jun 04, 2016 at 17:28 Discharge Date: Jun 07, 2016 Admitting Diagnosis pancreatitis, MS, dehydration (1) Pancreatitis ICD Code: K85.90 (2) UTI (urinary tract infection) ICD Code: N39.0 (3) Failure to thrive in adult ICD Code: R62.7 (4) Schizophrenia ICD Code: F20.9 Procedures None Brief History - From Admission This is a 60-year-old DNR female with a PMH of Anxiety, Depression, Schizophrenia, HTN and MS who was sent to the ER from [facility] secondary to decreased PO intake. Pt unable to give history as she is nonverbal at baseline. Per report, pt currently under Hospice, however Son wanting full treatment. On arrival, BP 160/72, HR 60, O2 sat 96% on RA, Afebrile. CBC normal. Creatinine 1.05, previously 1.33 on 05/19/16. UA positive for UTI. Lipase 1401. CT Abd/Pelvis w/ no acute findings. S/p Cipro in ER for UTI. CBC/BMP: 06/06/16 0607 06/07/16 0607 Significant Findings Laboratory Tests Test 06/04/16 06/04/16 06/05/16 06/06/16 15:33 15:38 05:22 06:07 Carbon Dioxide Level 35.3 MEQ/L 32.5 MEQ/L (21.0-32.0) (21.0-32.0) Anion Gap 3 MEQ/L (5-15) Blood Urea Nitrogen 22 MG/DL (7-18) Creatinine 1.05 MG/DL (0.50-1.00) Estimat Glomerular Filtration 53 ML/MIN (>89) 64 ML/MIN (>89) 78 ML/MIN (>89) Rate Aspartate Amino Transf 53 U/L (15-37) 38 U/L (15-37) (AST/SGOT) Albumin 3.2 GM/DL 2.9 GM/DL (3.4-5.0) (3.4-5.0) Lipase 1401 U/L (73-393) Urine Turbidity HAZY (CLEAR) Urine Leukocyte Esterase MOD (NEG) Urine WBC 14 /hpf (0-5) Urine Bacteria OCC /hpf (NONE) Red Blood Count 3.72 MIL/MM3 (4.00-5.30) Hematocrit 34.8 % (35.0-46.0) Platelet Count 145 TH/MM3 (150-450) Monocytes (%) (Auto) 8.9 % (0.0-8.0) Sodium Level 146 MEQ/L (136-145) Chloride Level 108 MEQ/L (98-107) Random Glucose 69 MG/DL 148 MG/DL (74-106) (74-106) Potassium Level 3.4 MEQ/L (3.5-5.1) Test 06/07/16 06:07 Estimat Glomerular Filtration 73 ML/MIN (>89) Rate Random Glucose 111 MG/DL (74-106) Imaging Last Impressions Abdomen/Pelvis CT 06/04/16 0000 Signed Impressions: Service Date/Time: Saturday, June 04, 2016 18:14 - CONCLUSION: 1. No acute findings within the abdomen and pelvis. Specifically no CT findings for acute pancreatitis. 2. Multiple calcified gallstones and bilateral nonobstructing renal calculi. 3. Mild constipation. 4. No significant change from April. Dago Farfan MD PE at Discharge GENERAL: Frail and elderly female noninteractive SKIN: Multiple skin bruises secondary to multiple falls per her son. CARDIOVASCULAR: Normal rate and regular rhythm without murmurs, gallops, or rubs. RESPIRATORY: Breath sounds equal and clear to auscultation bilaterally. GASTROINTESTINAL: Abdomen soft, non-distended. Normal active bowel sounds MUSCULOSKELETAL: Extremities without cyanosis, or edema. NEURO: Nonverbal. Noninteractive PSYCH: Calm Pt update on day of discharge Patient is nonverbal and noninteractive. Hospital Course 60-year-old female who apparently has been living at an [facility] and was on hospice admitted with pancreatitis and possible UTI. The patient has had a declining neurological course with previous psychiatric issues, there is reported MS as one of her diagnosis. Brain imaging revealed brain atrophy and extensive small vessel ischemic changes, previous stroke. At baseline she does not talk. Per her son she has been able to follow command and eat. She would try to get up at times but has been having recurrent falls which leads to multiple bruises. Apparently the patient has been having a declining course at the [facility] and was on hospice. Patient was sent into the hospital when she started to decline further. Unfortunately the patient does not appear to make significant improvements. She is not interacting and not eating. Family decided to put her back on hospice. Hospice was consulted and the patient was discharged to the hospice care center. Evaluation and treatment course of the other conditions detailed below: Pancreatitis: Lipase 1401. Overnight trended down to normal 155 with IV fluid hydration. There has been no report of vomiting. Abdominal CT reviewed by me. No acute findings or signs of pancreatitis. -Patient was treated with IV fluid Uncontrolled hypertension: The patient was unable to take oral medication currently. She was transferred to the [facility] for IV antihypertensives and was given a clonidine patch. UTI: Urinalysis suggestive of UTI. Urine grew group D enterococcus. Sensitive to vancomycin and Macrobid. Patient was given vancomycin. Failure to thrive: See above discussion with the son. Patient is unable to swallow or eat. Not interactive. Family decided to put her back on hospice and comfort care. Schizophrenia: Stable. Continue home medications. Pt Condition on Discharge: Deteriorating Discharge Disposition: Hospice/Med Facility Discharge Time: > 30 minutes Discharge Instructions DIET: Follow Instructions for: As Tolerated, No Restrictions Activities you can perform: Regular-No Restrictions Mckenzie Gustafson MD Jun 07, 2016 13:06
[2016-06-09] MEDS ORDERED: PHARMACY ORDERED LAB XX ONE (04:45)
[2016-06-12] MEDS ORDERED: REMOVE OLD PATCH T-DERMAL SCH (16:00)
== END 2016-06-07 15:28 | disposition hospice, inpatient (51) | DRG 439 ==
LOC: NEDAMB 14:00 → NEDA 17:28 → N06B 20:35 → HCIS 06-06 18:22
PROVIDERS: ADMIT Family Medicine; ATTEND Family Medicine
DX: K85.90 Acute pancreatitis without necrosis or infection, unspecified (principal); N39.0 Urinary tract infection, site not specified; B95.2 Enterococcus as the cause of diseases classified elsewhere; R62.7 Adult failure to thrive; G35 Multiple sclerosis; F20.9 Schizophrenia, unspecified; I10 Essential (primary) hypertension; Z66 Do not resuscitate; Z51.5 Encounter for palliative care; Z86.73 Personal history of transient ischemic attack (TIA), and cerebral infarction without residual deficits; R29.6 Repeated falls; Z88.1 Allergy status to other antibiotic agents
CPT/HCPCS: 74176; 80048; 80053; 81001; 83605; 83690; 85025; 85027; 87077; 87086; 87186; 96361; 96365; C9113; J0360; J0744; J2060; J2270; J3370; J3480; J7030; J7040